=== PATIENT | male | born 2000 | race Two or more races ===

== ENCOUNTER 2021-09-04 22:42 | Emergency (ER) | payer SELFPAY ==
[~2021-09-04] VITALS: Ht 162.6 cm; Wt 76.4 kg
--- NOTE | 2021-09-04 22:56 | PHYS DOC ---
General Adult EDM: Chief Complaint: LACERATION/AVULSION HPI: HPI: Patient is a 21 year old male who presents to the ED today with left forearm laceration that occurred after he accidentally cut himself with a blade while installing carpet. Patient is right-handed. Review of Systems: Review of Systems: Constitutional: Denies fever or chills. [] Musculoskeletal: Denies back pain or joint pain. [] Integument: Reports left forearm laceration Neurologic: Denies headache, focal weakness or sensory changes. [] Psychiatric: Denies depression or anxiety. [] Heart Score: C/O Chest Pain: N/A Risk Factors: Risk Factors: DM, Current or recent (<one month) smoker, HTN, HLP, family history of CAD, obesity. Risk Scores: Score 0 - 3: 2.5% MACE over next 6 weeks - Discharge Home Score 4 - 6: 20.3% MACE over next 6 weeks - Admit for Clinical Observation Score 7 - 10: 72.7% MACE over next 6 weeks - Early Invasive Strategies Current Medications: Current Medications Medications (Trade) Dose Ordered Sig/Mason Start Time Stop Time Status Last Admin Dose Admin Lidocaine/ Epinephrine (LIDOCAINE 1%-EPI 1:100,000 Multi-Dose) 20 ml 1X ONCE 09/04/21 23:00 09/04/21 23:01 UNV Physical Exam: PE: Constitutional: Well developed, well nourished, no acute distress, non-toxic appearance. [] [] Skin: Left mid forearm with a laceration approximately 2 cm long, there is no obvious tendon involvement. Full range of motion to the left forearm and fingers. Adequate radial, medial, ulnar sensation to the left fingers. +2 left radial pulse. Cap refill less than 2 seconds to left fingers Back: No tenderness, no CVA tenderness. [] Extremities: No tenderness, no cyanosis, no clubbing, ROM intact, no edema. [] Neurologic: Alert and oriented X 3, normal motor function, normal sensory function, no focal deficits noted. [] Psychologic: Affect normal, judgement normal, mood normal. [] EKG: EKG: [] Radiology/Procedures: Radiology/Procedures: Laceration/Wound Repair Wound Location: Left forearm laceration Wound's Depth, Shape: Vertical Wound Length (cm): Proximately 2 cm Wound Explored: clean Irrigated w/ Saline (ccs): 30 Anesthesia: Lidocaine with epinephrine Volume Anesthetic (ccs): Approximately 4 cc Wound Repaired With: Ethilon Suture Size/Type: 4.0/interrupted sutures Number of Sutures: 6 Progress : Wound was covered with nonstick dressing Course & Med Decision Making: Course & Med Decision Making Pertinent Labs and Imaging studies reviewed. (See chart for details) This a 21-year-old male patient presented to the ED today with left forearm laceration that occurred after he accidentally cut himself with a blade. Laceration was closed by me as noted in procedures. Wound care instructions and return precautions provided to patient. Tetanus up-to-date. Reinforcing Rod Layer line was used for [place] Dragon Disclaimer: Dragon Disclaimer: This electronic medical record was generated, in whole or in part, using a voice recognition dictation system. Departure Departure Impression: Primary Impression: Laceration of forearm, left Qualified Codes: S51.812A - Laceration without foreign body of left forearm, initial encounter Disposition: HOME / SELF CARE / HOMELESS Condition: STABLE Patient Instructions: Laceration Care, Adult, [id number] Additional Instructions: You were evaluated in the emergency room with left forearm laceration, the laceration closed with stitches. You can remove the dressing in 24 hours, you can shower wash the area in 24 hours. Keep the area clean and dry. Keep the area open to air if its not bleeding or draining after 24 hours. Apply Neosporin to the area twice a day for 7 days. Come back to the ED in 7 days for stitches to be removed. Monitor the area for any signs of infection including but not limited to increased redness, warmth, yellow drainage from the area and return to the ED today ABIGAIL URBINA APRN September 04, 2021 22:56
[2021-09-04] MEDS ORDERED: LIDOCAINE 1%/EPI 1:100,000 20 ML VIAL. INJ ONE (23:30)
[2021-09-05 00:15] VITALS: BP 109/56
== END 2021-09-05 00:28 | disposition home or self-care (01) ==
LOC: ER 22:42
DX: S51.812A Laceration without foreign body of left forearm, initial encounter (principal); Y28.8XXA Contact with other sharp object, undetermined intent, initial encounter; Y93.89 Activity, other specified; Y92.89 Other specified places as the place of occurrence of the external cause; Y99.8 Other external cause status
CPT/HCPCS: 12001; 99282; J3490